=== PATIENT | female | born 1960 | race Caucasian/White ===

== ENCOUNTER 2018-06-25 20:19 | Emergency (ER) | payer OTHER ==
--- NOTE | 2018-06-25 20:33 | ED ---
ED Suture/Wound Check - HPI Summary HPI Summary: A 58 y/o F brought in by ambulance from [facility] presents to ED s/p hernia repair approximately 10 days ago. Surgery was done at [facility]. She saw her surgeon two days ago and is scheduled to see the surgeon again in two days. She had interval blood work drawn this AM, however, it could not be processed. Daughter and patient have concerns of anemia because patient has a hematoma on the surgery site and has had some "leakage" in the area. Associated sx: nausea/ dry heaving, dry mouth. Pt is on Lovenox and Coumadin. PMHx: CA, nephrectomy. ED provider spoke to daughter via phone. - History Of Current Complaint Stated Complaint: SURGERY COMPLICATIONS PER EMS Hx Obtained From: Patient, Family/Plans Examiner - daughter via phone Onset/Duration: Still Present Severity: Moderate Pain Intensity: 5 Pain Scale Used: 0-10 Numeric Procedure Type: hernia repair - Allergies/Home Medications Allergies/Adverse Reactions: Allergies Allergy/AdvReac Type Severity Reaction Status Date / Time insulin glargine Allergy Unknown Verified 06/25/18 20:44 [From Lantus U-100 Insulin] Reaction Details metformin Allergy Unknown Verified 06/25/18 20:44 Reaction Details nalbuphine [From Nubain] Allergy Unknown Verified 06/25/18 20:44 Reaction Details procaine [From Novocain] Allergy Unknown Verified 06/25/18 20:44 Reaction Details propoxyphene [From Darvon] Allergy Unknown Verified 06/25/18 20:44 Reaction Details strawberry Allergy Unknown Verified 06/25/18 20:44 Reaction Details PMH/Surg Hx/FS Hx/Imm Hx Previously Healthy: No - CA, nephrectomy - Family History Known Family History: Positive: Unknown - Social History Occupation: Unemployed - OTHER Lives: With Family Alcohol Use: None Hx Substance Use: No Smoking Status (MU): Former Smoker Review of Systems Positive: Other - pos: dry mouth Positive: Abdominal Pain, Nausea - and dry heaves Skin: Other - pos: hematoma to abd at surgical site All Other Systems Reviewed And Are Negative: Yes Physical Exam - Summary Physical Exam Summary: Appearance: Well-appearing, Obese, lying in bed comfortably, no acute distress Skin: Warm, dry, no obvious rash, appears pale Eyes: sclera anicteric, no conjunctival pallor ENT: mucous membranes moist, pharynx appears normal Neck: Supple, nontender Respiratory: Clear to auscultation, no signs of respiratory distress Cardiovascular: Normal S1, S2. No murmurs. Normal distal pulses in tibial and radial bilaterally. Abdomen: Abd binder in place, was able to pull out of the way: the wound is clean and dry, there is some serous sanguineous drainage on dressing. Otherwise , abd is soft, nontender. Normal active bowel sounds present Musculoskeletal: Normal, Strength/ROM Intact Neurological: A&Ox3, awake and alert, mentation is normal, speech is fluent and appropriate Psychiatric: affect is normal, does not appear anxious or depressed Triage Information Reviewed: Yes Vital Signs Reviewed: Yes Diagnostics - Laboratory Result Diagrams: 06/25/18 21:20 06/25/18 21:20 Lab Statement: Any lab studies that have been ordered have been reviewed, and results considered in the medical decision making process. Re-Evaluation - Re-Evaluation 1 Re-Evaluation Time: 21:48 Change: Unchanged Comment: Speaking to daughter via phone, updating her on Hgb values. She believes the hernia repair surgeon at [facility] was Dr. Gurrola. 2 Re-Evaluation Time: 23:18 Change: Unchanged Comment: Updating daughter by phone, plans to transfer to [facility]. Course/Dx - Course Course Of Treatment: Pt is a 58 y/o F from [facility] s/p hernia repair at [facility] approximately 10 days ago. She saw her surgeon two days ago and is scheduled to see the surgeon again in two days. She had interval blood work drawn this AM, however, it could not be processed. Daughter and patient have concerns of anemia because patient has a hematoma on the surgery site and has had some "leakage" in the area. Associated sx: nausea/dry heaving, dry mouth. Pt is on Lovenox and Coumadin. Critical lab values: Hgb: 5.4. Lab work shows INR: 2.29, APTT: 49. Consulted with Dr. Gold, surgery, at [facility] who recommends transfer to [facility]. - Clinical Impression Provider Diagnoses: Severe anemia Discharge - Sign-Out/Discharge Documenting (check all that apply): Patient Departure - TRANS: [facility] Patient Received Moderate/Deep Sedation with Procedure: No - Discharge Plan Condition: Guarded Disposition: TRANS HIGHER LVL OF CARE FAC Referrals: No Primary Care Phys,NOPCP [Primary Care Provider] - - Billing Disposition and Condition Condition: GUARDED Disposition: Trans Higher Lvl of Care Fac - Attestation Statements Document Initiated by Bjorn: Yes Documenting Scribe: Elliot Shepherd Provider For Whom Bjorn is Documenting (Include Credential): Dr. Damon Dickerson MD Scribe Attestation: I, Elloit Shepherd, scribed for Dr. Damon Dickerson MD on 06/26/18 at 0031. Scribe Documentation Reviewed: Yes Provider Attestation: The documentation as recorded by the saranibe, Elliot Shepherd accurately reflects the service I personally performed and the decisions made by me, Dr. Damon Dickerson MD Status of Scribe Document: Viewed Consult Consult: [id number]: Spoke with [facility] transfer center They will have nurse call back. 2300: Spoke with [facility] transfer center They will reach on-call surgeon and call back. 2313: Consult with Dr. Gold, surgery, at [facility] Recommends transfer to [facility].
[2018-06-25 21:44] LABS: Hematocrit 17 % (33-41); Hemoglobin 5.4 g/dL (12.0-16.0); Mean Corpuscular HGB Conc 33 g/dL (31-36); Mean Corpuscular Hemoglobin 29 pg (27-31); Mean Corpuscular Volume 87 fL (80-97); Mean Platelet Volume 8.5 fL (7.4-10.4); Platelet Count 323 10^3/uL (150-450); Red Blood Count 1.91 10^6 /uL (3.70-4.87); Red Cell Distribution Width 17 % (10.5-15); White Blood Count 8.8 10^3/uL (3.5-10.8)
[2018-06-25 21:46] LABS: INR 2.29 (0.77-1.02)
[2018-06-25 21:47] LABS: Albumin 2.9 g/dL (3.2-5.2); Albumin/Globulin Ratio 1.2 (1-3); BUN/Creatinine Ratio 10.7 (8-20); Calcium 8.1 mg/dL (8.6-10.3); EGFR African American 46.4 (>60); EGFR Non-African American 38.4 (>60); Globulin 2.4 g/dL (2-4); Potassium 4.2 mmol/L (3.5-5.0); Total Bilirubin 0.5 mg/dL (0.2-1.0); Total Protein 5.3 g/dL (6.4-8.9)
[2018-06-25] MEDS ORDERED: oxyCODONE/Acetamin 5/325 MG* TAB PO ONE (22:11)
[2018-06-25 22:17] LABS: Immature Granulocytes 1 % (0-9); Lymphocytes % 16 %; Metamyelocytes % 1 % (0-2); Monocytes % 10 %; Neutrophil % 73 %; Nucleated Red Blood Cells/100 2 (0-0)
[2018-06-25 22:18] LABS: Polychromasia 2+
[2018-06-25 22:24] LABS: ABS Basophils 0 10^3/ul (0-0.2); ABS Eosinophils 0 10^3/ul (0-0.6); ABS Lymphocytes 1.4 10^3/ul (1.0-4.8); ABS Neutrophils 6.3 10^3/ul (1.5-7.7); ABS Nucleated RBC 0.1 10^3/ul; Eosinophil % 0.4 %; Lymphocyte % 16.4 %
[2018-06-26 01:08] VITALS: BP 101/66
== END 2018-06-26 00:52 | disposition short-term general hospital (02) ==
LOC: ED 20:19
DX: D64.9 Anemia, unspecified (principal); L76.32 Postprocedural hematoma of skin and subcutaneous tissue following other procedure; R11.0 Nausea; Z79.01 Long term (current) use of anticoagulants; Z88.4 Allergy status to anesthetic agent; Z88.5 Allergy status to narcotic agent; Z88.8 Allergy status to other drugs, medicaments and biological substances; Z91.018 Allergy to other foods; Z87.891 Personal history of nicotine dependence
CPT/HCPCS: 36415; 36430; 80053; 85025; 85060; 85610; 85730; 86850; 86900; 86901; 86922; 99284; A9270-GY; P9040